=== PATIENT | female | born 1945 | race Two or more races ===

== ENCOUNTER 2024-12-23 11:27 | Day surgery (SDC) | payer MEDICARE, MEDICAID, SELFPAY ==
[2024-12-23] VITALS (8 sets, daily range): BP systolic 96–162; BP diastolic 56–96; PULSE 71–85; RESP 11–17; TEMP 36.8; O2SAT 92–100; BMI 21.9
--- NOTE | 2024-12-23 11:30 | ESOP_ITS ---
Procedure Direct current cardioversion for uncontrolled atrial fibrillation Moderate Conscious Sedation with Versed and Fentanyl Date of Procedure 12/23/24 Pre Op Diagnosis Atrial Fibrillation Indication Atrial Fibrillation Post Op Diagnosis Normal Sinus Rhythm restored. Procedure Description Patient was in atrial fibrillation and ventricular rate was controlled came in for elective cardioversion as patient was having significant symptoms for the Afib. Decision was made to perform cardioversion for the patient after performing a transesophageal echocardiogram. Transesophageal echocardiogram was completed today and did not show any significant LA or MARIO thrombus.? Please see NATHALIE report from today for rest of the findings.? Patient was already on anticoagulation with eliquis.. Patient was taken to the laboratory courier for the NATHALIE and cardioversion, both anterior and posterior pads were placed.? Patient was given moderate sedation and r eceived a total of 3 mg of Versed and 50 mcg of fentanyl prior to the procedure to provide him enough for sedation. A biphasic defibrillator was used.? A single 120 J synchronized shock was given and the patient converted successfully into normal sinus rhythm.? No complications during or after the procedure.? Patient is doing well.? His heart rate was stable between 50 to 70 bpm and appears to be normal sinus rhythm on the telemetry.? Recommend to perform an EKG to document normal sinus rhythm postprocedure.? Patient will be monitored in the laboratory courier for the next 1-2 hours and will be discharged home if hemodynamically stable. Will adjust his medications for atrial fibrillation as outpatient. Estimated Blood Loss 0 Specimen(s) Specimen(s): none Conclusion Successful direct current cardioversion of Atrial Fibrillation to Normal Sinus Rhythm Recommendation Continue metoprolol XL 50 mg Q Day if BP stable and will adjust medications in the office as outpatient. Continue Eliquis 2.5 mg BID for anticaogulation. EKG to document NSR post procedure. No driving for 24 hours. Patient recommended to follow up in 1 week in the clinic. Surgical Staff Surgeon: Juan M Hammer MD
[2024-12-23 12:33] LABS: Basophils # (Auto) 0.1 Thou/mm3 (0.0-0.2); Basophils % (Auto) 1 % (0-2.5); Eosinophils # (Auto) 0.1 Thou/mm3 (0.0-0.5); Eosinophils % (Auto) 2 % (0-10); Hematocrit 33.9 % (36.0-46.0); Hemoglobin 11.0 g/dL (12.0-16.0); Immature Granulocytes Auto 0.01 Thou/mm3 (0.00-0.00); Lymphocytes # (Auto) 2.2 Thou/mm3 (1.0-4.8); Lymphocytes % (Auto) 34 % (10-50); Mean Corpuscular HGB Conc 32.4 g/dl (31.0-37.0); Mean Corpuscular Hemoglobin 28.1 pg (25.0-35.0); Mean Corpuscular Volume 87 fL (80-100); Monocytes # (Auto) 0.7 Thou/mm3 (0.0-0.8); Monocytes % (Auto) 11 % (0-12); Neutrophils # (Auto) 3.3 Thou/mm3 (1.8-7.7); Neutrophils % (Auto) 52 % (37-80); Nucleated Red Blood Cell # 0.00 Thou/mm3 (0.00-0.00); Nucleated Red Blood Cell % 0 /100 WBC (0); Platelet Count 422 Thou/mm3 (140-440); RDW Standard Deviation 51.2 fL (36.4-46.3); Red Blood Count 3.92 Miln/mm3 (4.00-5.20); White Blood Count 6.4 Thou/mm3 (3.6-11.0)
[2024-12-23 12:40] LABS: Anion Gap 12 (7-16); BUN/Creatinine Ratio 17 Ratio (12-20); Blood Urea Nitrogen 20 mg/dL (9-23); Calcium 10.4 mg/dL (8.3-10.6); Carbon Dioxide 27.3 mMol/L (20.0-31.0); Chloride 98 mMol/L (98-107); Creatinine (Component) 1.2 mg/dL (0.6-1.3); Glucose 102 mg/dL (74-106); Osmolality,Calculated 276 (275-295); Potassium 4.1 mMol/L (3.4-5.1); Sodium 137 mMol/L (136-145); eGFR 45 See Note
[2024-12-23 12:44] LABS: INR 1.0 (0.9-1.3); Partial Thromboplastin Time 28.3 Seconds (22.0-36.0); Prothrombin Time 10.6 Seconds (9.0-12.2)
[2024-12-23] MEDS: BENZOCAINE 20% (Hurricaine) SPRAY 1 DOSE TOP (12:54)
[2024-12-23] MEDS: MIDAZOLAM INJ 1 MG/ML VIAL 2 ML 3 MG IVP (12:56)
[2024-12-23] MEDS: fentaNYL CIT INJ 50 mCg/ML AMP 2ML IVP (12:56)
--- NOTE | 2024-12-23 13:00 | ECHO_ITS ---
Patient Info Name: Perla Palma Age: 79 years : 1945 Gender: Female Ht: 147 cm Wt: 51 kg BSA: 1.45 m2 BP: 162 / 92 mmHg HR: 76 bpm Heart Rhythm: Sinus Rhythm Exam Date: 12/23/2024 12:52 PM Admit Date: 12/23/2024 Site: [facility] Room Number: [employer] Patient Status: O Exam Type: CA echo transesophageal [employer] Manager: Kaya Gilbert Ordering Physician: Juan M Hammer Referring Physician: Juan M Hammer Study Info Indications Afib - [facility] Left Ventricle Left ventricular systolic function is normal with visually estimated ejection fraction of 50-55%. Left ventricular chamber dimension is normal. There is normal geometry noted in the left ventricle. There is normal diastolic function in the left ventricle. Right Ventricle Right ventricular chamber dimension is normal. Right ventricular systolic function is normal. Left Atrium Left atrial chamber dimension is normal. Right Atrium Right atrial chamber dimension is moderately enlarged. Aortic Valve The aortic valve is trileaflet. MIld aortic valve sclerosis without stenosis. Mild MR and trace TR. Pulmonic Valve The pulmonic valve is normal. Mitral Valve The mitral valve has normal leaflets. There is mild mitral valve regurgitation. Tricuspid Valve The tricuspid valve leaflets are normal. There is trace tricuspid valve regurgitation. Pericardium/Pleural There is no pericardial effusion. The pericardium appears normal. Summary 1. Indication: Mitral regurgitation. 2. Bubble study negative for PFO or ASD. No LA or MARIO thrombus. 3. No LA or MARIO thrombus. No evidence of any valvular vegetation. 4. Normal LV size and function. Estimated EF is 55%. Normal RV size and function. 5. Severely dilated LA. No pericardial effusion. 6. MIld aortic valve sclerosis without stenosis. Mild MR and trace TR. Report Signatures Finalized by Juan M Hammer on 12/23/2024 07:40 PM
== END 2024-12-23 13:50 | disposition home or self-care (01) ==
PROVIDERS: PCP Student in an Organized Health Care Education/Training Program; Referring Provider Internal Medicine Cardiovascular Disease; Visit Provider Internal Medicine Cardiovascular Disease
PROC: (CPT 93312; principal; 2024-12-23 11:30)
DX: I48.91 Unspecified atrial fibrillation (principal); I50.30 Unspecified diastolic (congestive) heart failure; I49.5 Sick sinus syndrome; E87.1 Hypo-osmolality and hyponatremia; I27.82 Chronic pulmonary embolism; G47.33 Obstructive sleep apnea (adult) (pediatric); E78.49 Other hyperlipidemia; Z79.899 Other long term (current) drug therapy; Z79.01 Long term (current) use of anticoagulants; I08.0 Rheumatic disorders of both mitral and aortic valves
CPT/HCPCS: 92960; 36415; 80048; 85025; 85610; 85730; 93312; 99152; J2250; J3010; A9270